=== PATIENT | female | born 1945 | race Caucasian/White ===

== ENCOUNTER 2016-07-13 06:30 | Day surgery (SDC) | payer MEDICARE, BC ==
[~2016-07-13] VITALS: Ht 162.6 cm; Wt 59.0 kg
[2016-07-13] MEDS ORDERED: PARO10TA24 PO (06:34)
[2016-07-13] MEDS ORDERED: LEVO50TA5 PO (06:34)
[2016-07-13] MEDS ORDERED: IBUP-1060 PO (06:35)
[2016-07-13] MEDS ORDERED: ONDANSETRON PF 4 MG/2 ML VIAL. IV PRN (07:00)
[2016-07-13] MEDS ORDERED: HYDROMORPHONE 2 MG/ML VIAL. IV PRN (07:00)
[2016-07-13] MEDS ORDERED: MORPHINE SULFATE 2 MG/ML DISP.SYRIN. IV PRN (07:00)
[2016-07-13] MEDS ORDERED: PROCHLORPERAZINE 10 MG/2 ML VIAL. IV PRN (07:00)
[2016-07-13] MEDS ORDERED: FENTANYL PF 100 MCG/2 ML VIAL. IV PRN (07:00)
[2016-07-13] MEDS ORDERED: LIDOCAINE 1% 1 ML SYRINGE. ID PRN (07:00)
[2016-07-13] MEDS ORDERED: IV RINGERS,LACTATED 1000ML 1,000 ML IV SCH (07:00)
[2016-07-13] MEDS ORDERED: IOHEXOL 300 MG/ML 50 ML VIAL. ONE (07:09)
[2016-07-13] MEDS ORDERED: SURGICEL HEMOSTAT 4X8 EACH. ONE (07:10)
[2016-07-13] MEDS ORDERED: BUPIVACAINE-EPI 0.5%-1:200000 50 ML VIAL. ONE (07:10)
[2016-07-13 07:17] LABS: BASO # 0.1 x10^3/uL (0.0-0.2); BASO % 1 % (0-3); EOS % 2 % (0-3); HEMATOCRIT 42.9 % (36.0-47.0); HEMOGLOBIN 14.4 g/dL (12.0-15.5); LYMPH # 2.4 x10^3/uL (1.0-4.8); LYMPH % 21 % (24-48); MEAN CORPUSCULAR HEMOGLOBIN 30 pg (25-35); MEAN CORPUSCULAR HGB CONC 34 g/dL (31-37); MEAN CORPUSCULAR VOLUME 88 fL (79-100); MONO % 5 % (0-9); NEUT % 72 % (31-73); PLATELET COUNT 250 x10^3/uL (140-400); RED BLOOD COUNT 4.87 x10^6/uL (3.50-5.40); WHITE BLOOD COUNT 11.3 x10^3/uL (4.0-11.0)
[2016-07-13] MEDS ORDERED: GLUCAGON,HUMAN RECOMBINANT 1 MG/ML VIAL. ONE (07:20)
[2016-07-13] MEDS ORDERED: FENTANYL PF 100 MCG/2 ML VIAL. ONE (07:31)
[2016-07-13 07:32] LABS: CREATININE 0.5 mg/dL (0.6-1.0); POTASSIUM 3.4 mmol/L (3.5-5.1)
[2016-07-13] MEDS ORDERED: DESFLURANE 61 TO 120 MINUTES IH ONE (07:32)
[2016-07-13] MEDS ORDERED: LIDOCAINE 2% 100 MG/5 ML DISP.SYRIN. ONE ×2 (07:32→08:59)
[2016-07-13] MEDS ORDERED: ONDANSETRON PF 4 MG/2 ML VIAL. ONE (07:32)
[2016-07-13] MEDS ORDERED: ROCURONIUM 50 MG/5 ML VIAL. ONE (07:32)
[2016-07-13] MEDS ORDERED: PROPOFOL 20 ML IV ONE (07:32)
[2016-07-13] MEDS ORDERED: DEXAMETHASONE SOD PHOS 20 MG/5 ML VIAL. ONE (07:33)
[2016-07-13 07:37] LABS: ALBUMIN 4.2 g/dL (3.4-5.0); ALBUMIN/GLOBULIN RATIO 1.1 (1.0-1.7); TOTAL BILIRUBIN 0.5 mg/dL (0.2-1.0); TOTAL PROTEIN 7.9 g/dL (6.4-8.2)
[2016-07-13] MEDS ORDERED: ACETAMINOPHEN INTRAVENOUS 100 ML IV ONE (07:55)
[2016-07-13] MEDS ORDERED: EPHEDRINE SULFATE 50 MG/ML VIAL. ONE (07:59)
[2016-07-13] MEDS ORDERED: CEFAZOLIN 2GM PREMIX 50 ML IV ONE (08:00)
[2016-07-13] MEDS ORDERED: GLYCOPYRROLATE 1 MG/5 ML VIAL. ONE (08:26)
[2016-07-13] MEDS ORDERED: NEOSTIGMINE METHYLSULFATE 5 MG/5 ML SYRINGE. ONE (08:26)
--- NOTE | 2016-07-13 08:42 | RAD ---
Intraoperative cholangiogram, 07/13/2016: History: Cholecystectomy 3 spot films from surgery are presented for review. Contrast has been injected into the cystic duct remnant. 22 seconds of fluoroscopy time was utilized. There is good flow of contrast into the duodenum at the ampulla. No filling defect is seen in the common duct to suggest a retained calculus. The visualized intrahepatic ducts are unremarkable. IMPRESSION: No significant abnormality is detected.
--- NOTE | 2016-07-13 09:33 | PDOC ---
BRIEF OPERATIVE NOTE Date: Jul 13, 2016 Pre-Op Diagnosis biliary dyskinesia Post-Op Diagnosis same Procedure Performed l/s cholecystectomy, with cholangiograms, YEYO Surgeon Spencer Power Nut Runner Operator Guerline TAYLOR Anesthesia Type: General Blood Loss 25cc IV Fluid 800cc Specimens Obtained GB Findings Omental adhesions from previous surgery, normal grams, supple GB Complications none Additional Remarks Wk # [id number] JESUS NATHAN MD Jul 13, 2016 09:33
--- NOTE | 2016-07-13 09:34 | DISCH ---
DISCHARGE INSTRUCTIONS Condition on Discharge Condition on Discharge: Stable Activity After Discharge Activity Instructions for Disc: Activity as tolerated, Avoid exertion Lifting Instructions after Dis: No heavy lifting Driving Instructions after Dis: Do not drive (3-4 days) Diet after Discharge Diet after Discharge: Regular Wound Incision Care Other wound/incision instructi: october shower Wednesday Follow-Up Follow up with: Spencer in [place] office JESUS NATHAN MD Jul 13, 2016 09:34
[2016-07-13] MEDS: FENTANYL PF 100 MCG/2 ML VIAL. IV PRN ×4 (09:37→10:13)
--- NOTE | 2016-07-13 10:02 | OP ---
DATE OF SURGERY: 07/13/2016 PREOPERATIVE DIAGNOSIS: Biliary dyskinesia. POSTOPERATIVE DIAGNOSIS: Biliary dyskinesia. PROCEDURE PERFORMED: Laparoscopic cholecystectomy with cholangiogram. SURGEON: Dangelo Nathan M.D. EPIC MANAGER: CLAUDIA Patel ANESTHESIA: General endotracheal. ESTIMATED BLOOD LOSS: 25 mL. IV FLUID: 800. INDICATIONS: The patient is a 70-year-old with postprandial epigastric and right upper quadrant pain and nausea. Evaluation suggested findings consistent with biliary dyskinesia. She is brought for cholecystectomy. OPERATIVE FINDINGS: The liver was smooth and sharp. The gallbladder was supple. Cholangiograms were normal. DESCRIPTION OF PROCEDURE: The patient brought to the operating suite, given a general endotracheal anesthetic and the abdomen prepped and draped in usual sterile fashion. A small incision was made in the midclavicular line and a 5 mm Visiport used to gain access to the abdominal cavity, taking care to avoid injury to abdominal contents. Pneumoperitoneum was established. Camera inserted and inspection carried out with results as noted above. Under direct vision, the epigastric port was placed and this allowed placement of camera port in the right hypochondriac area under direct vision. This allowed access for takedown of omental adhesions in the right upper quadrant to allow adequate visualization for the procedure. This was done with a "hot" scissor taking care to avoid injury to the adjacent bowel. The lateral port site was occupied by an alligator grasper. The gallbladder was retracted superolaterally and the cystic duct and cystic artery were identified. The cystic duct was clipped on the gallbladder side. Cholangiograms were made. These were normal. In light of this, the catheter was removed. The cystic duct was clipped x 2 and divided, taking care to avoid injury or compromise of the common duct. The cystic artery was isolated, clipped x 2 and divided and the gallbladder freed from the bed with cautery dissection and placed in an EndoCatch bag. Good hemostasis was present. A 19-Chadian round Will drain was left in the subhepatic space and secured to the skin having been brought out through the midclavicular port site. The gallbladder delivered through the epigastric incision. Epigastric incision closed with interrupted 0 Vicryl suture. Intra-abdominal pressure decreased to 6 cm of water. No bleeding from the epigastric closure or from the drain site or from the previous alligator grasper site. Abdomen decompressed, camera slowly removed, no bleeding seen. Skin incisions closed with subcuticular 4-0 Monocryl. Steri-Strips and sterile dressings applied. The patient was awakened from her anesthetic and taken to the recovery room in satisfactory condition. DANGELO NATHAN MD DR: ELDER/yuliya JOB#: [id number] / [id number]
[2016-07-13] MEDS ORDERED: OXYC-323 PO (10:03)
[2016-07-13] MEDS ORDERED: SENN1TAB71 PO (10:03)
[2016-07-13] MEDS ORDERED: OXYCODONE/APAP 5/325 TABLET. ONE (10:32)
[2016-07-13] MEDS ORDERED: OXYCODONE/APAP 5/325 TABLET. PO ONE (11:00)
[2016-07-13 11:50] VITALS: BP 117/62
--- NOTE | 2016-07-14 15:09 | PATHOLOGY ---
PATHOLOGY REPORT * * * * * * * * FINAL DIAGNOSIS: Gallbladder, laparoscopic cholecystectomy: - Chronic cholecystitis, mild. COMMENT: There are no calculi identified within the gallbladder lumen or specimen container. There is no evidence of malignancy. (JPM:all; d/t: 07/14/2016) REPORT ELECTRONICALLY SIGNED BY: Reuben Clark M.D. DATE/TIME: 07/14/2016 15:06 * * * * * * * * GROSS PATHOLOGY: Received in formalin labeled "Vee Ocampo, gallbladder and contents," is a 7.7 x 2.8 x 2.7 cm, intact gallbladder with blue-barton serosal surfaces. Opening the gallbladder reveals a velvety, bile-stained mucosa and an average wall thickness of 0.1 cm. Calculi are not present and no masses are noted grossly. [employer] sections from the body and fundus are submitted along with the proximal margin in cassette A1. (CAA; 07/13/2016) INITIAL CPT CODE(S): A; 87154 Professional services performed [place] [facility] [address] Technical services performed by [facility] at [address] [place] [address] [address], [place] [address]. SPECIMEN(S) RECEIVED: A.Gallbladder and contents CLINICAL HISTORY: Biliary dyskinesia PATIENT: VEE OCAMPO /AGE: 309/16/1945 (Age: 70) PATIENT #: [id number] ALT CASE #: SPECIMEN COLLECTION DATE: 07/13/2016 SPECIMEN RECEIVED DATE: 07/13/2016 [facility] - [id number] [place] [address] - PHONE: [phone] * * * END OF REPORT * * *
== END 2016-07-13 13:25 ==
LOC: SURG 06:30
PROVIDERS: ATTEND Surgery
DX: K81.1 Chronic cholecystitis (principal); J45.909 Unspecified asthma, uncomplicated; F32.9 Major depressive disorder, single episode, unspecified; Z90.710 Acquired absence of both cervix and uterus; F17.210 Nicotine dependence, cigarettes, uncomplicated; Z86.73 Personal history of transient ischemic attack (TIA), and cerebral infarction without residual deficits; M19.042 Primary osteoarthritis, left hand; M19.041 Primary osteoarthritis, right hand; Z90.79 Acquired absence of other genital organ(s); Z98.890 Other specified postprocedural states
CPT/HCPCS: 36415; 47563; 74300; 80053; 85027; J0131; J0690; J1100; J2405; J2704; J2710; J3010; J3490; Q9967; C1769; C1782; J1610; J7030